=== PATIENT | female | born 1990 | race Caucasian/White ===

== ENCOUNTER 2023-05-19 06:54 | Inpatient (IN) ==
--- NOTE | 2023-05-12 14:35 | Anesthesiology Consultation ---
Date of Service May 12, 2023 Assessment & Plan (1) Encounter for pre-operative examination: Chart Review Chart Review: administrative assistant data entry initiated Pt had 2 prior C/S: first was for distress (2010). repeat c/s with second (2013). No issues noted. History Surgery Operation Date: 05/19/23 08:55 Proposed Procedures p Section (Delivery of Baby Through Abdominal Incision) - Steffany Tom MD, FACOG s with Bilateral Tubal Ligation - Steffany Tom MD, FACOG Height/Weight Height: 4 ft 11 in Weight: 83.007 kg Allergies Allergy/AdvReac Type Severity Reaction Status Date / Time No Known Allergies Allergy Verified 05/12/23 13:15 Medications Home Medications Medication Instructions Recorded Confirmed Last Taken acetone (urine) test (Ketone Urine #50 ea 03/24/23 05/11/23 Unknown Test strips) blood sugar diagnostic (OneTouch #150 ea 03/24/23 05/11/23 Unknown Verio test strips) blood-glucose meter (OneTouch #1 ea 03/24/23 05/11/23 Unknown Verio Reflect Meter) lancets 33 gauge #150 ea 03/24/23 05/11/23 Unknown No Known Meds 05/12/23 Unknown Past Medical History Medical History (Updated 05/12/23 @ 14:35 by Penny Palmer PA-C) Anxiety anxiety flared over the past yr/have been off medication for and o verall controlled;some anxiety with relation to upcoming c/s. Gestational diabetes diet controlled. History of high cholesterol History of panic attacks Nausea and vomiting after administration of anesthetic agent hx nausea Past Family History Family History Mother Diabetes insulin Denies family history of Ovarian cancer Prostate cancer Breast cancer Colorectal cancer Past Surgical History Surgical History (Updated 05/12/23 @ 15:09 by Penny Palmer PA-C) History of x2; first was for distress (2010). repeat c/s with second (2013). History of dilatation and curettage Social History Smoking Status: Never smoker Do You Dip or Chew Tobacco: No Hx Alcohol Use: No Hx Substance Use: No substance use type: does not use Testing Electrocardiogram Date: 06/22/22 Findings: + NSR @ (80bpm) Echocardiogram Date: 10/19/22 EF: 55-59% LV Function: normal RWMA: + none Valvular Disease: + no significant valvular disease Stress Test Date: 06/10/22 Type: exercise Findings: + WNL Pt reached 90% MPHR. EKG response normal. No evidence of ischemia.
--- NOTE | 2023-05-18 08:43 | History & Physical Report ---
Date of Service May 18, 2023 Assessment & Plan (1) Encounter for supervision of normal in multigravida: (2) Gestational diabetes mellitus (GDM) affecting , antepartum: (3) Previous delivery affecting : Plan Plan repeat c/s and bilateral salpingectomy. The risks of surgery were discussed with the patient including the risks of anesthesia, bleeding requiring transfusion, infection, poor wound healing, urinary retention, damage to surrounding structures including bowels, bladder, vessels, nerves and ureters that may require further surgery, hospitalization or intervention. The other risks of any surgery were discussed including heart attack, blood clots, stroke or . Discussed injury to the baby. discussed the pros/cons of sterilization and permanence and regret. Desires to proceed. MA papers have been signed. Questions asked and answered. Planned for tomorrow. History of Present Illness Chief Complaint: repeat c/s and tubal Primary Care Provider: Marquita Rondon MD Patient is a at 39 weeks who presents for repeat c/s and tubal ligation. complicated by GDM. Most recent growth ultrasound showed AC 42% and EFW 28%. Probable 8mm arachoid cyst noted on recent us and evaluated with MFM. Plan for evaluation . This will be her third c/s--first was for distress and second was repeat. That baby had issues PP and required transfusions and transfer to tertiary care center. Patient desires permanent sterilization. Patient is tearful and anxious today. Nervous about surgery chicho in the last week. Hx of anxiety in the past and pp depression with her last two deliveries. Has previously been on Zoloft. Wants to restart pp. and Delivery Plans Rubella non-immune *give vaccine GDM w/28wk glucola *Begin monthly Growth US's C/S WITH TUBAL SCHEDULED FOR 05/19/[address] LIN AND DR[address] GRAHAM ASSIST MA-31 FORM SIGNED 03/14/2023 Mfm consult NEW MIDLINE BRAIN/INTERHEMISPHERIC CYST - likely arachnoid cyst, offered MRI, plan US OB Labs: Blood Type O Positive 11/10/22 Antibody Screen NEGATIVE 11/10/22 Hemoglobin 11.5 g/dl (12.0-16.0) L 03/02/23 Hematocrit 34.4 % (37.0-47.0) L 03/02/23 Mean Corpuscular Volume 89.1 fL (80.0-100.0) 11/10/22 Platelet Count 313 K/uL (130-400) 11/10/22 Rubella IgG Antibody Non Immune (Immune) L 11/10/22 Rapid Plasma Reagin Nonreactive (Nonreactive) 11/10/22 Hepatitis B Surface Antigen. NON-REACTIVE (NON-REACTIVE) 11/10/22 Hepatitis C Antibody (EIA) NON-REACTIVE (NON-REACTIVE) 11/10/22 HIV (1&2) Ag and Ab Confirmation NON-REACTIVE (NON-REACTIVE) 11/10/22 Glucose 1 Hour 50 gm Load 146 mg/dl (70-130) H 03/02/23 Maternal Serum Alpha Fetoprotein 31.1 ng/mL 12/08/22 OB Optional Labs: Chlamydia trachomatis RNA Not Detected (NotDetected) 11/10/22 Neisseria gonorrhoeae RNA Not Detected (NotDetected) 11/10/22 Alpha Fetoprotein Triple Screen SEE NOTE 12/08/22 Labs Reviewed: cfdna-low risk--mln afp neg--akh gbs neg--akh Allergies Allergy/AdvReac Type Severity Reaction Status Date / Time No Known Allergies Allergy Verified 05/18/23 09:51 Home Medications Medication Instructions Recorded Confirmed Type acetone (urine) test (Ketone Urine #50 ea 03/24/23 05/18/23 Rx Test strips) blood sugar diagnostic (OneTouch #150 ea 03/24/23 05/18/23 Rx Verio test strips) blood-glucose meter (OneTouch #1 ea 03/24/23 05/18/23 Rx Verio Reflect Meter) lancets 33 gauge #150 ea 03/24/23 05/18/23 Rx Patient History Medical History Anxiety anxiety flared over the past yr/have been off medication for and overall controlled;some anxiety with relation to upcoming c/s. Gestational diabetes diet controlled. History of high cholesterol History of panic attacks Nausea and vomiting after administration of anesthetic agent hx nausea Surgical History History of x2; first was for distress (2010). repeat c/s with second (2013). History of dilatation and curettage Family History Mother Diabetes insulin Denies family history of Ovarian cancer Prostate cancer Breast cancer Colorectal cancer Social History Smoking Status: Never smoker Second Hand Exposure: Yes ( smokes daily); Do You Dip or Chew Tobacco: No; Hx Alcohol Use: No Hx Substance Use: No Preferred Language: Kyrgyz Communication Ability: Effective Planner Scheduler Required: No Beliefs That Will Affect Care: None marital status: Current Living Situation: Spouse and Family Current Living Situation Comment: Nuno Kirk yo- [phone] current occupational status: employed 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 Date GA wks Lbr Lgth wt Sex Type del Anes Place Del Prov ? Comment 06/08/11 40 17 hours then emerg C/S 7#7.5 M Epidural Mirlande Briscoe failed to progress 07/22/13 5 Aborted-Spontaneous d&e 03/26/14 39 no 6-3 M Spin al Mirlande Briscoe maternal hemorrhage (?) and baby life flight to [place] for transfusions Physical Exam Constitutional: WD/WN, vitals as above Gastrointestinal (Abdomen): soft, gravid, obese, well healed Pfannenstiel scar Psychiatric: A+Ox3, euthymic affect Coding Level of Care Code None Diagnoses Encounter for supervision of normal in multigravida Z34.80 Gestational diabetes mellitus (GDM) affecting , antepartum O24.419 Previous delivery affecting O34.219
[~2023-05-19 06:54] MED LIST: CITRIC ACID/SODIUM CITRATE 15 ML UDC PO SCH; LACTATED RINGER'S 1,000 ML IV SCH; ceFAZolin 2,000 MG in SYRINGE 0 ML IV SCH
--- NOTE | 2023-05-19 07:07 | History & Physical Bridge Note ---
Date of Service May 19, 2023 History & Physical Bridge Note I have examined the patient, reviewed the History & Physical and in the interval since the performance of the History & Physical I have noted the following changes of clinical significance: no changes noted
[2023-05-19] MEDS ORDERED: MoRPHine SULFATE PF 1 MG/ML 10 ML AMP/VIAL ONE (09:45)
[2023-05-19] MEDS ORDERED: MoRPHine SULFATE 2 MG/ML CARP IV PRN (09:55)
[2023-05-19] MEDS ORDERED: ePHEDrine sulfate 50 MG/ML AMP IV PRN (09:55)
[2023-05-19] MEDS ORDERED: MoRPHine SULFATE PF 1 MG/ML 10 ML AMP/VIAL INT SPINAL ONE (09:55)
[2023-05-19] MEDS ORDERED: diphenhydrAMINE 50 MG/ML VIAL IV PRN (09:55)
[2023-05-19] MEDS ORDERED: MEPERIDINE HCL 25 MG/ML CARP/VIAL IV PRN (09:55)
[2023-05-19] MEDS ORDERED: PROMETHAZINE HCL 12.5 MG in SODIUM CHLORIDE 0.9% 50 ML IV PRN (09:55)
[2023-05-19] MEDS ORDERED: NALOXONE HCL 1 MG in SODIUM CHLORIDE 0.9% 1,000 ML IV PRN (09:55)
[2023-05-19] MEDS ORDERED: NALBUPHINE HCL INJ 10 MG/ML AMP IV PRN (09:55)
[2023-05-19] MEDS ORDERED: HYDROmorphone INJ 0.5 MG/0.5 ML SYR IV PRN (09:55)
[2023-05-19] MEDS ORDERED: NALOXONE HCL 0.08 MG in SYRINGE 1.8 ML IV PRN (09:55)
[2023-05-19] MEDS ORDERED: ONDANSETRON INJ 2 MG/ML 2 ML VIAL IV PRN (09:55)
[2023-05-19] MEDS ORDERED: LACTATED RINGER'S 500 ML IV PRN (09:55)
[2023-05-19] MEDS ORDERED: METOCLOPRAMIDE HCL 10 MG in SODIUM CHLORIDE 0.9% 50 ML IV PRN (09:55)
[2023-05-19] MEDS ORDERED: NALOXONE HCL 0.4 MG/1 ML VIAL/CARP IV PRN (09:55)
[2023-05-19] MEDS ORDERED: DC INTRASPINAL MORPHINE SCH (10:00)
[2023-05-19] MEDS ORDERED: NO NARCOTICS OR SEDATIVES SCH (10:00)
[2023-05-19] MEDS ORDERED: SODIUM CHLORIDE 0.9% 1,000 ML IV SCH (10:00)
[2023-05-19] MEDS ORDERED: OXYTOCIN 10 UNITS/ML VIAL ONE (10:27)
[2023-05-19] MEDS ORDERED: PHENYLEPHRINE 100MCG/ML 5ML SYR ONE (10:27)
[2023-05-19] MEDS ORDERED: ePHEDrine sulfate 50 MG/5 ML SYR ONE (10:27)
[2023-05-19] MEDS ORDERED: fentaNYL citrate PF 100 MCG/2 ML VIAL ONE (10:28)
[2023-05-19] MEDS ORDERED: MAGNESIUM HYDROXIDE SUSP 30 ML UDC PO PRN (10:39)
[2023-05-19] MEDS ORDERED: HYDROCORTISONE ACETATE 25 MG SUPP PR PRN (10:39)
[2023-05-19] MEDS ORDERED: DIPHTHERIA/TETANUS/PERTUSSIS Vaccine (Tdap, Age 7+yrs) 0.5mL SYR/VL IM ONE (10:39)
[2023-05-19] MEDS ORDERED: SENNA 8.6 MG TAB PO PRN (10:39)
[2023-05-19] MEDS ORDERED: BENZOCAINE 20% SPRY 85 APPLN/85 GM CAN EXT PRN (10:39)
[2023-05-19 10:54] LABS: Base Excess Cord Venous Blood -1.1 mEq/L (-7.7-1.9); Cord Venous Blood HCO3 22 mmol/L (18.4-26.8); Cord Venous Blood PCO2 33 mmHg (30.4-57.2); Cord Venous Blood PO2 33 mmHg (14.1-43.3); Cord Venous Blood pH 7.44 (7.20-7.44); O2 Saturation Cord Venous Bld < 60.0 % (<68)
--- NOTE | 2023-05-19 11:01 | Operative Report ---
PG Post Operative Report Pre & Post Diagnosis Operation Date: 05/19/23 08:55 Pre-Op Diagnosis: Intrauterine at 39 weeks gestation History repeat c-seation X2 Desires permanent sterilization Post-Op Diagnosis: same I identified the patient and participated in the time-out.: Yes Procedure Operation Date: 05/19/23 08:55 Actual Procedures p Section in LD for live femal at 1020 - Steffany Tom MD, FACOG Surgeon Steffany Tom MD, FACOG Topper Packer Dr. Saucedo, Dr. Olivas Estimated Blood Loss 600 Findings Consistent with Post-Op Diagnosis viable female , nuchal cord x 2, clear fluid. nl uterus/tubes/ovs Fluids 1000cc uop 50cc, clear Specimens bilateral tubes Drains none Anesthesia Type Spinal Complications none Disposition Accompanied Patient To Recovery: Yes Disposition: L&D Indications [id number] with hx of c/s x2. Here for repeat and also desires tubal sterilization. Description of Procedure The patient was taken to the operating room where she was identified verbally and by bracelet. She was seated on the operating table where a spinal anesthetic was placed by anesthesia. She was then placed in the supine position with a leftward tilt. A Dixon catheter was placed sterilely. the patient was prepped and draped in a normal standard fashion. the anesthetic was tested and found to be adequate. A time-out was held, identifying correct patient, procedure, positioning and preoperative antibiotics. There were no concerns. A Pfannenstiel skin incision was made with a knife and taken down to the underlying layer of fascia with the knife and Bovie electrocautery. Bleeding was attended to with the Bovie. The fascia was incised in the midline with the knife and taken out laterally with scissors. The superior edge of the fascial incision was grasped, elevated and the underlying layer of rectus muscle was taken off bluntly and with scissors. In a similar fashion, the inferior edge of the fascial incision was grasped, elevated and the underlying layer of rectus muscle was taken off bluntly and with scissors. The muscles were bluntly in the midline. The peritoneum was entered sharply. The incision was then stretched. The bladder blade was placed. The vesicouterine peritoneum was identified, entered with scissors and taken out laterally with scissors. The bladder flap was created digitally A hysterotomy incision was scored with a knife and the incision was stretched superiorly and inferiorly with the sand mixer operator's fingers. The operators hand was placed into the incision and the head was delivered atraumatically. Nuchal cord x 2. The nose and mouth were bulb suctioned. the rest of the infant was then delivered without difficulty. The nose and mouth were again bulb suctioned. The cord was clamped and cut and the infant was then handed off to the awaiting photofinishing laboratory worker for drying and attention. Cord blood and segment were obtained. The placenta was Manually extracted. The uterus was exteriorized and cleared of all clot and debris with moistened laparotomy sponges. The hysterotomy incision was repaired in one layer, a running locked layer. Hemostasis was noted to be good. Posterior cul-de-sac was irrigated and cleared of all clot and debris. The hysterotomy incision was again inspected and found to be hemostatic. A bilateral salpingetomy was then performed first on the right and then on the left with a Ligasure. Hemostasis was excellent. the uterus was reinteriorized. Hysterotomy incision was again inspected and found to be hemostatic. Tubal sites hemostatic. Rectus muscles were reapproximated with several interrupted stitches of 0 Vicryl. The fascia was then reapproximated with 0 Vicryl starting at the edges and meeting in the midline. The subcuticular tissues were copiously irrigated and bleeding was attended to with cautery. The skin was then closed with 4-0 Vicryl in a subcuticular fashion. All sponge, lap and needle counts were correct x 2. The patient was taken to the recovery room in stable condition. I attest to the content of the Intraoperative Record and any orders documented therein. Any exceptions are noted below. OB Procedure Charges 43611 [id number] Add on Tubal for C/S
[2023-05-19] MEDS: SIMETHICONE 80 MG CHEW PO SCH ×3 (13:00→21:05)
--- NOTE | 2023-05-19 14:10 | Anesthesiology Progress Note ---
Date of Service May 19, 2023 Anesthesia Post Procedure Vital Signs Vital Signs: Temp Pulse Resp BP Pulse Ox O2 Del Method 05/19/23 08:06 36.7 C 19 05/19/23 08:06 36.7 C 19 Room Air 05/19/23 13:00 84 L 05/19/23 13:00 85 05/19/23 12:59 100 05/19/23 12:59 73 05/19/23 12:54 100 05/19/23 12:54 63 05/19/23 12:53 64 05/19/23 12:53 117/69 05/19/23 12:49 100 05/19/23 12:49 68 05/19/23 12:44 100 05/19/23 12:44 76 05/19/23 12:44 116/62 05/19/23 12:39 100 05/19/23 12:39 61 05/19/23 12:34 100 05/19/23 12:34 86 05/19/23 12:29 100 05/19/23 12:29 66 05/19/23 12:24 100 05/19/23 12:24 74 05/19/23 12:24 78 05/19/23 12:24 120/74 05/19/23 12:19 100 05/19/23 12:19 85 05/19/23 12:17 84 L 05/19/23 12:17 84 05/19/23 12:14 96 05/19/23 12:14 69 05/19/23 12:09 74 L 05/19/23 12:09 70 05/19/23 12:04 96 05/19/23 12:04 80 05/19/23 12:04 86 L 05/19/23 12:04 90 05/19/23 12:03 99 H 05/19/23 12:03 114/76 05/19/23 11:59 91 05/19/23 11:59 80 05/19/23 11:59 87 L 05/19/23 11:59 79 05/19/23 11:54 100 05/19/23 11:54 93 H 05/19/23 11:53 57 L 05/19/23 11:53 110/73 05/19/23 11:49 100 05/19/23 11:49 74 05/19/23 11:45 82 L 05/19/23 11:45 123 H 05/19/23 11:44 96 05/19/23 11:44 63 05/19/23 11:43 60 05/19/23 11:43 112/75 05/19/23 11:39 93 05/19/23 11:39 64 05/19/23 11:38 86 L 05/19/23 11:38 75 05/19/23 11:34 100 05/19/23 11:34 59 L 05/19/23 11:34 83 05/19/23 11:34 112/83 05/19/23 11:29 91 05/19/23 11:29 73 05/19/23 11:28 81 L 05/19/23 11:28 86 05/19/23 11:24 100 05/19/23 11:24 63 05/19/23 11:24 56 L 05/19/23 11:24 120/67 05/19/23 11:19 100 05/19/23 11:19 59 L 05/19/23 11:14 89 L 05/19/23 11:14 66 05/19/23 11:13 60 05/19/23 11:13 113/58 L 05/19/23 11:11 85 L 05/19/23 11:11 61 05/19/23 11:09 100 05/19/23 11:09 62 05/19/23 11:07 59 L 05/19/23 11:07 114/54 L 05/19/23 11:04 89 L 05/19/23 11:04 73 05/19/23 11:02 92 05/19/23 11:02 69 05/19/23 10:59 100 05/19/23 10:59 67 05/19/23 10:57 91 05/19/23 10:57 76 05/19/23 10:54 100 05/19/23 10:54 67 05/19/23 10:53 61 05/19/23 10:53 111/65 05/19/23 07:07 85 124/82 Transfer of Care Handoff Completed per policy Notes Mental Status: alert / awake / arousable and participated in evaluation Nausea / Vomiting: adequately controlled Pain: adequately controlled Airway Patency, RR, SpO2: stable & adequate BP & HR: stable & adequate Hydration State: stable & adequate Neuraxial Anesthesia: was administered and sensory block is resolving Anesthetic Complications: no major complications apparent and Pt Satisfied with anesthetic care
[2023-05-19] MEDS: KETOROLAC 30 MG/ML VIAL IV PRN ×2 (16:12→23:52)
[2023-05-19] MEDS: OXYTOCIN 20 UNITS in LACTATED RINGER'S 1,000 ML IV SCH (17:05)
[2023-05-19] MEDS: DOCUSATE SODIUM 100 MG CAP PO SCH (21:05)
[2023-05-20] MEDS: OXYTOCIN 20 UNITS in LACTATED RINGER'S 1,000 ML IV SCH (00:49)
[2023-05-20] MEDS ORDERED: diphenhydrAMINE Capsule 25 MG CAP PO PRN (03:56)
[2023-05-20] MEDS ORDERED: KETOROLAC 30 MG/ML VIAL IV PRN (03:56)
[2023-05-20] MEDS ORDERED: MEPERIDINE HCL 50 MG/ML CARP IV PRN (03:56)
[2023-05-20] MEDS ORDERED: ONDANSETRON INJ 2 MG/ML 2 ML VIAL IV PRN (03:56)
[2023-05-20] MEDS ORDERED: PROMETHAZINE HCL 25 MG in SODIUM CHLORIDE 0.9% 50 ML IV PRN (03:56)
[2023-05-20] MEDS ORDERED: diphenhydrAMINE 50 MG/ML VIAL IV PRN (03:56)
[2023-05-20 07:19] LABS: Basophils # (auto) 0.03 K/uL (0.00-0.20); Basophils % (auto) 0.4 %; Eosinophils # (auto) 0.11 K/uL (0.00-0.50); Eosinophils % (auto) 1.4 %; Hematocrit (blood only) 29.3 % (37.0-47.0); Immature Granulocytes # (auto) 0.02 K/uL (0.01-0.20); Immature Granulocytes % (auto) 0.3 %; Lymphocytes # (auto) 1.17 K/uL (1.20-3.40); Lymphocytes % (auto) 14.9 %; Mean Corpuscular Hemoglobin 29.9 pg (25.0-34.0); Mean Corpuscular Hgb Conc 34.1 g/dL (32.0-36.0); Mean Corpuscular Volume 87.7 fL (80.0-100.0); Mean Platelet Volume 12.4 fL (9.4-12.4); Monocytes # (auto) 0.67 K/uL (0.11-0.59); Monocytes % (auto) 8.5 %; Neutrophils # (auto) 5.87 K/uL (1.40-6.50); Neutrophils % (auto) 74.5 %; Platelet Count 155 K/uL (130-400); RDW Coefficient of Variation 15.1 % (11.5-14.5); RDW Standard Deviation 48.7 fL (36.4-46.3); Red Blood Count 3.34 M/uL (4.20-5.40); White Blood Count 7.87 K/ul (4.8-10.8)
--- NOTE | 2023-05-20 07:27 | Obstetrical Progress Note ---
Date of Service May 20, 2023 Assessment & Plan (1) S/P : Plan: encourage ambulation pain control Admission and Anticipated Discharge Date Admission Date: May 19, 2023 Supervising Physician Co-Signing Physician Notes Resident Physician Supervision Note: I interviewed and examined the patient. Discussed with Dr. Leyva and agree with findings and plan as documented in the note. Any exceptions or clarifications are listed here: Doing well, Postop day 1. Routine care. h/h are reasonable. Vitals stable. Incision c/d/i Documented By: Steffany Tom MD, FACOG Subjective 33 yo post day 1 s/p Ambulation: ambulating normally Voiding: no voiding problems Passing Gas:: Yes Diet Tolerance:: regular diet Lochia:: Small Feeding Type:: bottle feeding with plan to breast feed Current Pain Level: minimal, well controlled Resting comfortably this AM in NAD. Denies BALDERAS, CP, SOB, N/V/D, LE pain/swelling. Review of Systems Review of Systems: reviewed, per HPI Physical Exam Physical Exam: General: patient resting comfortably, NAD, non-toxic in appearance, AA&O x 4, answers questions appropriately. Skin: warm, dry, intact HEENT: NC/AT, anicteric sclera, conjunctiva without injection, moist mucus membranes. Heart: +S1/S2, regular, no m/r/g Lungs: equal air entry bilaterally, no rales/rhonchi/wheezes Abd: +BS, soft, NT/ND, uterine fundus firm at umbilicus, caesarean incision C/D/I. Ext: warm, no clubbing/cyanosis or edema, Abbie's neg. Neuro: nonfocal, patient AA&O x 4, speech intact, no facial droop, moving all extremities on command. Results & Data Vital Signs (Past 12 Hours) Vital Signs Temp Pulse Resp BP Pulse Ox O2 Del Method 05/20/23 03:40 18 100 05/20/23 02:21 18 96 05/20/23 01:15 18 97 05/20/23 00:20 18 99 05/19/23 23:29 18 98 05/20/23 03:40 36.5 C 77 18 101/69 100 Room Air 05/19/23 23:29 36.5 C 77 18 101/67 98 Room Air 05/19/23 20:32 36.6 C 83 18 112/76 100 Room Air 05/19/23 22:15 18 97 05/19/23 21:22 18 98 05/19/23 20:32 18 100 05/19/23 19:30 18 100 Laboratory Results 05/20/23 05/19/23 05/19/23 Range/Units 06:41 10:20 10:20 WBC 7.87 (4.8-10.8) K/ul RBC 3.34 L (4.20-5.40) M/uL Hgb 10.0 L (12.0-16.0) g/dl Hct 29.3 L (37.0-47.0) % MCV 87.7 (80.0-100.0) fL MCH 29.9 (25.0-34.0) pg MCHC 34.1 (32.0-36.0) g/dL RDW Std Deviation 48.7 H (36.4-46.3) fL RDW Coeff of Marquis 15.1 H (11.5-14.5) % Plt Count 155 (130-400) K/uL MPV 12.4 (9.4-12.4) fL Immature Gran % (Auto) 0.3 % Neut % (Auto) 74.5 % Lymph % (Auto) 14.9 % [place] % (Auto) 8.5 % Eos % (Auto) 1.4 % Baso % (Auto) 0.4 % Neut # (Auto) 5.87 (1.40-6.50) K/uL Lymph # (Auto) 1.17 L (1.20-3.40) K/uL [place] # (Auto) 0.67 H (0.11-0.59) K/uL Eos # (Auto) 0.11 (0.00-0.50) K/uL Baso # (Auto) 0.03 (0.00-0.20) K/uL Immature Gran # (Auto) 0.02 (0.01-0.20) K/uL Cord ABG pH Cancelled Cord ABG pCO2 Cancelled Cord ABG pO2 Cancelled Cord ABG HCO3 Cancelled Cord ABG Base Excess Cancelled Cord ABG O2 Sat Cancelled Cord VBG pH 7.44 (7.20-7.44) Cord VBG pCO2 33 (30.4-57.2) mmHg Cord VBG pO2 33 (14.1-43.3) mmHg Cord VBG HCO3 22 (18.4-26.8) mmol/L Cord VBG Base Excess -1.1 (-7.7-1.9) mEq/L Cord VBG O2 Sat < 60.0 (<68) % Barometric Pressure Cancelled Blood Gas Comments A Cancelled POC Glucose (70-99) mg/dl Blood Type Antibody Screen 05/19/23 05/19/23 Range/Units 08:27 07:24 WBC (4.8-10.8) K/ul RBC (4.20-5.40) M/uL Hgb (12.0-16.0) g/dl Hct (37.0-47.0) % MCV (80.0-100.0) fL MCH (25.0-34.0) pg MCHC (32.0-36.0) g/dL RDW Std Deviation (36.4-46.3) fL RDW Coeff of Marquis (11.5-14.5) % Plt Count (130-400) K/uL MPV (9.4-12.4) fL Immature Gran % (Auto) % Neut % (Auto) % Lymph % (Auto) % [place] % (Auto) % Eos % (Auto) % Baso % (Auto) % Neut # (Auto) (1.40-6.50) K/uL Lymph # (Auto) (1.20-3.40) K/uL [place] # (Auto) (0.11-0.59) K/uL Eos # (Auto) (0.00-0.50) K/uL Baso # (Auto) (0.00-0.20) K/uL Immature Gran # (Auto) (0.01-0.20) K/uL Cord ABG pH Cord ABG pCO2 Cord ABG pO2 Cord ABG HCO3 Cord ABG Base Excess Cord ABG O2 Sat Cord VBG pH (7.20-7.44) Cord VBG pCO2 (30.4-57.2) mmHg Cord VBG pO2 (14.1-43.3) mmHg Cord VBG HCO3 (18.4-26.8) mmol/L Cord VBG Base Excess (-7.7-1.9) mEq/L Cord VBG O2 Sat (<68) % Barometric Pressure Blood Gas Comments POC Glucose 74 (70-99) mg/dl Blood Type O Positive Antibody Screen NEGATIVE Resident Activity Tracking Resident Involvement: Resident Care Provided Care Provided: OB Delivery
[2023-05-20] MEDS: DOCUSATE SODIUM 100 MG CAP PO SCH ×2 (07:59→20:28)
[2023-05-20] MEDS: FERROUS SULFATE 325 MG TAB PO SCH (07:59)
[2023-05-20] MEDS: IBUPROFEN 600 MG TAB PO PRN ×2 (07:59→15:10)
[2023-05-20] MEDS: SIMETHICONE 80 MG CHEW PO SCH ×4 (07:59→20:28)
[2023-05-20] MEDS: PRENATAL VITAMIN 1 TAB PO SCH (07:59)
[2023-05-20] MEDS ORDERED: ACETAMINOPHEN 500 MG TAB PO PRN (09:10)
[2023-05-20] MEDS: SERTRALINE HCL 50 MG TABLET PO SCH (10:40)
[2023-05-20] MEDS: oxyCODONE/ACETAMINOPHEN 5mg/325mg TAB PO PRN (17:06)
[2023-05-20] MEDS ORDERED: bisacodyL 5 MG TABEC PO SCH (20:00)
[2023-05-21] MEDS: oxyCODONE/ACETAMINOPHEN 5mg/325mg TAB PO PRN ×3 (00:20→10:49)
[2023-05-21] MEDS: IBUPROFEN 600 MG TAB PO PRN ×2 (06:41→10:48)
[2023-05-21 08:01] LABS: Hematocrit (blood only) 31.4 % (37.0-47.0); Hemoglobin 10.3 g/dl (12.0-16.0)
[2023-05-21] MEDS: FERROUS SULFATE 325 MG TAB PO SCH (08:24)
[2023-05-21] MEDS: SIMETHICONE 80 MG CHEW PO SCH (08:25)
[2023-05-21] MEDS: PRENATAL VITAMIN 1 TAB PO SCH (08:25)
[2023-05-21] MEDS: DOCUSATE SODIUM 100 MG CAP PO SCH (08:25)
[2023-05-21] MEDS: SERTRALINE HCL 50 MG TABLET PO SCH (08:25)
--- NOTE | 2023-05-21 08:41 | Obstetrical Progress Note ---
Date of Service May 21, 2023 Assessment & Plan (1) Encounter for care and examination after delivery: Day 2 s/p CS. Doing well. Routine post care. Stable for discharge is preferred Subjective Ambulation: ambulating normally Voiding: no voiding problems Passing Gas:: Yes Diet Tolerance:: regular diet Lochia:: Moderate Feeding Type:: breast feeding Physical Exam Constitutional WD/WN, vitals as above Respiratory normal respiratory effort; no respiratory distress and no labored breathing Gastrointestinal (Abdomen) Inspection/Auscultation: abdomen normal to inspection; abdomen not distended Percussion/Palpation: abdomen soft; abdomen nontender, no guarding and abdomen not rigid Incision clean, dry and intact Genitourinary OB Exam Abdomen: + fundal height Fundus: + firm and + relation to umbilicus (Below); not tender or not boggy Results & Data Vital Signs (Past 12 Hours) Vital Signs Temp Pulse Resp BP Pulse Ox O2 Del Method 05/21/23 07:40 36.8 C 74 18 113/78 98 Room Air 05/21/23 00:15 36.5 C 79 16 102/70 97 Room Air
[2023-05-21] MEDS ORDERED: bisacodyL 10 MG SUPP PR PRN (10:39)
--- NOTE | 2023-05-23 12:57 | Discharge Summary ---
Date of Service May 23, 2023 Admission HPI Per Admitting Provider Patient is a at 39 weeks who presents for repeat c/s and tubal ligation. complicated by GDM. Most recent growth ultrasound showed AC 42% and EFW 28%. Probable 8mm arachoid cyst noted on recent us and evaluated with MFM. Plan for evaluation . This will be her third c/s--first was for distress and second was repeat. That baby had issues PP and required transfusions and transfer to tertiary care center. Patient desires permanent sterilization. Patient is tearful and anxious today. Nervous about surgery chicho in the last week. Hx of anxiety in the past and pp depression with her last two deliveries. Has previously been on Zoloft. Wants to restart pp. and Delivery Plans Rubella non-immune *give vaccine GDM wwk glucola *Begin monthly Growth US's C/S WITH TUBAL SCHEDULED FOR 05/19/[address] LIN AND DR[address] GRAHAM ASSIST MA-31 FORM SIGNED 03/14/2023 Mfm consult NEW MIDLINE BRAIN/INTERHEMISPHERIC CYST - likely arachnoid cyst, offered MRI, plan US OB Labs: Blood Type O Positive 11/10/22 Antibody Screen NEGATIVE 11/10/22 Hemoglobin 11.5 g/dl (12.0-16.0) L 03/02/23 Hematocrit 34.4 % (37.0-47.0) L 03/02/23 Mean Corpuscular Volume 89.1 fL (80.0-100.0) 11/10/22 Platelet Count 313 K/uL (130-400) 11/10/22 Rubella IgG Antibody Non Immune (Immune) L 11/10/22 Rapid Plasma Reagin Nonreactive (Nonreactive) 11/10/22 Hepatitis B Surface Antigen. NON-REACTIVE (NON-REACTIVE) 11/10/22 Hepatitis C Antibody (EIA) NON-REACTIVE (NON-REACTIVE) 11/10/22 HIV (1&2) Ag and Ab Confirmation NON-REACTIVE (NON-REACTIVE) 11/10/22 Glucose 1 Hour 50 gm Load 146 mg/dl (70-130) H 03/02/23 Maternal Serum Alpha Fetoprotein 31.1 ng/mL 12/08/22 OB Optional Labs: Chlamydia trachomatis RNA Not Detected (NotDetected) 02/23/23 Neisseria gonorrhoeae RNA Not Detected (NotDetected) 11/10/22 Alpha Fetoprotein Triple Screen SEE NOTE 12/08/22 Labs Reviewed: cfdna-low risk--mln afp neg--[facility] gbs neg--[facility] Discharge Data Procedures Performed Operation Date: 05/19/23 08:55 Actual Procedures p Section in for live femal at 1020 - Steffany Lin MD, [facility] [place] Hospital Course (1) Encounter for care and examination after delivery: (2) S/P : (3) Previous delivery affecting : (4) Gestational diabetes mellitus (GDM) affecting , antepartum: Plan The patient was admitted and underwent a repeat lo transverse c/s and a bilateral salpingectomy without issues. EBL--600cc. Normal pelvic anatomy noted. Her course was uncomplicated--tolerated a regular diet, ambulated without difficulty, voided after the removal of her Dixon, tolerated po pain meds. Was d/c on 05/21, admitted on 05/19. d/c h/h was 10.3/31.4. Will return in 6 weeks for a visit. Coding Level of Care Code None Diagnoses Encounter for care and examination after delivery Z39.2 S/P Z98.891 Previous delivery affecting O34.219 Gestational diabetes mellitus (GDM) affecting , antepartum O24.419
== END 2023-05-21 11:05 | disposition home or self-care (01) | DRG 785 ==
LOC: 4S1 06:54 → EDSTATUS 08:55 → 4E2 14:17